=== PATIENT | male | born 1945 | race Caucasian/White ===

== ENCOUNTER → 2016-12-18 | Outpatient (CLI) | payer MEDICARE, BC | LOC: KOH-I 10:13 | DX: M13.861 Other specified arthritis, right knee (principal); M25.551 Pain in right hip; Z88.0 Allergy status to penicillin; Z79.82 Long term (current) use of aspirin | CPT/HCPCS: 72170; 73502; 73564 ==

== ENCOUNTER → 2016-12-26 | Outpatient (CLI) | payer MEDICARE, BC | LOC: KOH-I 12-25 11:30 | DX: M13.851 Other specified arthritis, right hip (principal); M13.861 Other specified arthritis, right knee; M54.5 Low back pain; S83.281A Other tear of lateral meniscus, current injury, right knee, initial encounter; S83.241A Other tear of medial meniscus, current injury, right knee, initial encounter; S83.411A Sprain of medial collateral ligament of right knee, initial encounter | CPT/HCPCS: 73718; 73721 ==

== ENCOUNTER → 2020-10-25 | Outpatient (CLI) | payer MEDICARE, BC | LOC: KOH-I 09:39 | DX: M54.5 Low back pain (principal); M51.36 Other intervertebral disc degeneration, lumbar region; M48.061 Spinal stenosis, lumbar region without neurogenic claudication | CPT/HCPCS: 72100 ==

== ENCOUNTER → 2021-03-08 | Outpatient (CLI) | payer MEDICARE, BC | LOC: US 09:50 | DX: N63.10 Unspecified lump in the right breast, unspecified quadrant (principal) | CPT/HCPCS: 76641-RT ==

== ENCOUNTER → 2021-03-26 | Outpatient (CLI) | payer MEDICARE, BC | LOC: MAMO 12:40 | DX: N63.0 Unspecified lump in unspecified breast (principal) | CPT/HCPCS: 77065 ==

== ENCOUNTER → 2021-05-01 | Outpatient (CLI) | payer MEDICARE, BC | LOC: US 13:22 | DX: N28.1 Cyst of kidney, acquired (principal) ==

== ENCOUNTER → 2021-12-27 | Outpatient (CLI) | payer MEDICARE, BC | LOC: EXRD 09:28 | DX: E23.7 Disorder of pituitary gland, unspecified (principal); Z79.52 Long term (current) use of systemic steroids | CPT/HCPCS: 77080 ==

== ENCOUNTER → 2022-05-09 | Outpatient (CLI) | payer MEDICARE, BC | LOC: KOH-I 12:45 | DX: N28.1 Cyst of kidney, acquired (principal) | CPT/HCPCS: 76775 ==